=== PATIENT | female | born 1985 | race Caucasian/White ===

== ENCOUNTER → 2018-07-05 | Outpatient (CLI) | payer OTHER | LOC: M RAD 07:14 | DX: M54.42 Lumbago with sciatica, left side (principal); M99.03 Segmental and somatic dysfunction of lumbar region; M54.11 Radiculopathy, occipito-atlanto-axial region; M99.01 Segmental and somatic dysfunction of cervical region | CPT/HCPCS: 72040 ==

== ENCOUNTER 2021-02-16 20:42 | Emergency (ER) | payer MEDICAID, OTHER ==
[~2021-02-16] VITALS: Ht 149.9 cm; Wt 57.8 kg
[2021-02-16 20:43] VITALS: BP 122/78
[2021-02-16] MEDS ORDERED: ALBU83IN INH (21:02)
--- NOTE | 2021-02-16 21:56 | REPVR ---
PROCEDURE INFORMATION: Exam: XR Right Foot Exam date and time: 02/16/2021 9:22 PM Age: 36 years old Clinical indication: Pain; Foot; Right; Additional info: Pain after falling on rocks TECHNIQUE: Imaging protocol: XR Right foot. Views: 3 or more views. COMPARISON: No relevant prior studies available. FINDINGS: Bones/joints: Normal. Soft tissues: Normal. IMPRESSION: No acute findings. Electronically signed by: Darío Bellamy On 02/16/2021 21:55:42 PM
--- NOTE | 2021-02-16 21:57 | REPVR ---
PROCEDURE INFORMATION: Exam: XR Nasal Bones Exam date and time: 02/16/2021 9:22 PM Age: 36 years old Clinical indication: Nose pain; Additional info: Pain after falling on rocks TECHNIQUE: Imaging protocol: XR of the nasal bones. Views: Minimum of 3 views COMPARISON: No relevant prior studies available. FINDINGS: Sinuses: Well aerated. No opacification. Bones/joints: Nondisplaced fracture right nasal bone. Soft tissues: Unremarkable. IMPRESSION: Nondisplaced fracture right nasal bone. Electronically signed by: Darío Bellamy On 02/16/2021 21:57:08 PM
[2021-02-16] MEDS ORDERED: NORCO, ANEXSIA 5/325MG TABLET (HYDROcodone/ACETAMINOPHEN) PO ONE (22:00)
[2021-02-16] MEDS ORDERED: HYDR-3713 PO (22:16)
[2021-02-16] MEDS ORDERED: NORCO 5/325MG TABLET (BULK FOR ED) PO ONE (22:20)
== END 2021-02-16 22:54 | disposition home or self-care (01) ==
LOC: M ED 20:42
DX: S90.31XA Contusion of right foot, initial encounter (principal); S02.2XXA Fracture of nasal bones, initial encounter for closed fracture; W01.0XXA Fall on same level from slipping, tripping and stumbling without subsequent striking against object, initial encounter; Y92.832 Beach as the place of occurrence of the external cause; Y93.89 Activity, other specified; Y99.8 Other external cause status; J45.909 Unspecified asthma, uncomplicated; F17.200 Nicotine dependence, unspecified, uncomplicated

== ENCOUNTER 2021-04-27 13:55 | Emergency (ER) | payer OTHER ==
[~2021-04-27] VITALS: Ht 149.9 cm; Wt 130.0 kg
[~2021-04-27 13:55] MED LIST: ALBU83IN INH; HYDR-3713 PO
[2021-04-27 14:01] VITALS: BP 120/75
== END 2021-04-27 17:28 | disposition left against medical advice (07) ==
LOC: M ED 13:55
DX: Z53.21 Procedure and treatment not carried out due to patient leaving prior to being seen by health care provider (principal)

== ENCOUNTER 2021-05-30 00:55 | Emergency (ER) | payer OTHER ==
[~2021-05-30] VITALS: Ht 149.9 cm; Wt 59.1 kg
[2021-05-30 00:56] VITALS: BP 123/73
== END 2021-05-30 02:19 | disposition left against medical advice (07) ==
LOC: M ED 00:55
DX: Z53.21 Procedure and treatment not carried out due to patient leaving prior to being seen by health care provider (principal)

== ENCOUNTER 2021-06-04 12:12 | Emergency (ER) | payer OTHER ==
[~2021-06-04] VITALS: Ht 154.9 cm; Wt 59.6 kg
[2021-06-04] MEDS ORDERED: PROAAER10 INH (12:25)
[2021-06-04 13:51] LABS: BASO # 0.1 10^3/uL (0.0-0.2); BASO % 0.6 % (0.0-1.0); EOS # 0.3 10^3/uL (0.0-0.5); EOS % 3.3 % (0.0-3.0); HEMOGLOBIN 14.1 g/dl (12.0-15.5); LYMPH # 2.2 10^3/uL (1.5-5.0); LYMPH % 21.2 % (24.0-44.0); MEAN CORPUSCULAR HEMOGLOBIN 32.8 pg (27.0-33.0); MEAN CORPUSCULAR HGB CONC 33.6 g/dl (32.0-36.5); MEAN CORPUSCULAR VOLUME 97.7 fl (80.0-96.0); MONO # 0.7 10^3/uL (0.0-0.8); MONO % 6.5 % (2.0-8.0); NEUTROPHILS % 68.1 % (36.0-66.0); PLATELET COUNT, AUTOMATED 368 10^3/uL (150-450); WHITE BLOOD COUNT 10.3 10^3/uL (4.0-10.0)
[2021-06-04 14:10] LABS: HCG, SERUM QUALITATIVE NEGATIVE (NEGATIVE)
[2021-06-04] MEDS ORDERED: ACETAMINOPHEN 500 MG TAB PO ONE (14:15)
--- NOTE | 2021-06-04 16:45 | REP ---
INDICATION: +LOC, hit with football R orbit eye, nose monday. COMPARISON: September 24, 2011. TECHNIQUE: Helical scanning is acquired. 5 mm axial images were reformatted. Coronal MPR images were generated. FINDINGS: Bone window settings demonstrate an intact bony calvarium. There is no evidence of skull fracture or incidental bony calvarial lesion. The visualized paranasal sinuses appear clear. No intraorbital abnormality is seen. On soft tissue window setting images; the lateral, third, and fourth ventricles are normal in size and position. Andrea-white differentiation pattern is normal above and below the tentorium. There are is no evidence of intracranial hemorrhage. No mass, edema, infarction, or midline shift is seen. No extra-axial fluid collection is appreciated. IMPRESSION: Negative noncontrast head CT. <Electronically signed by Blaise Mahmood > 06/04/21 [id number]
[2021-06-04] MEDS ORDERED: KETOROLAC 60MG 2ML VIAL IM ONE (17:00)
--- NOTE | 2021-06-04 17:03 | REPVR ---
PROCEDURE INFORMATION: Exam: CT Maxillofacial Without Contrast, Sinus Exam date and time: 06/04/2021 4:32 PM Age: 36 years old Clinical indication: Injury or trauma; Other: +loc, hit with football R orbit eye, nose Monday; Blunt trauma (contusions or hematomas); Additional info: +loc, hit with football R orbit eye, nose Monday TECHNIQUE: Imaging protocol: CT Maxillofacial without contrast. Focus on the sinuses. Radiation optimization: All CT scans at this facility use at least one of these dose optimization techniques: automated exposure control; mA and/or kV adjustment per patient size (includes targeted exams where dose is matched to clinical indication); or iterative reconstruction. COMPARISON: CR Nasal Bones 02/16/2021 9:08 PM FINDINGS: Frontal sinuses: Normal. No air-fluid levels. Ethmoid air cells: Normal. No air-fluid levels. Sphenoid sinuses: Normal. No air-fluid levels. Maxillary sinuses: There is a minimal amount of mucoperiosteal thickening in the floors of the maxillary antra. No air-fluid levels in the paranasal sinuses. Nasal cavity/Septum: There is rightward deviation of the nasal septum which appears congenital. No fracture is identified. Orbital cavity: Globes appear intact. There is no intra or extraconal abnormality. The orbital rims appear intact. Bones/joints: There are comminuted fractures of the left nasal bones with slight lateral displacement of the anterior segments. Series 301, images 29 -34. There may be a nondisplaced fracture of the right nasal bones since there appears to be slight leftward deviation. Series 301, image 29. Soft tissues: Facial soft tissue swelling. Auditory system: The middle ear cavities and mastoid air cells are clear. IMPRESSION: There are fractures of the nasal bones on the left and possibly nondisplaced fracture on the right. Electronically signed by: Socorro Cabral On 06/04/2021 17:02:18 PM
[2021-06-04 17:34] VITALS: BP 128/75
== END 2021-06-04 17:42 | disposition home or self-care (01) ==
LOC: M ED 12:12
DX: S02.2XXB Fracture of nasal bones, initial encounter for open fracture (principal); W21.01XA Struck by football, initial encounter; Y92.9 Unspecified place or not applicable; Y93.9 Activity, unspecified; Y99.9 Unspecified external cause status
CPT/HCPCS: 70450; 70486; 84703; 85025; 96372; 99283; J1885

== ENCOUNTER 2021-07-03 14:58 | Emergency (ER) | payer OTHER ==
[~2021-07-03] VITALS: Ht 149.9 cm; Wt 62.6 kg
[~2021-07-03 14:58] MED LIST changes: +PROAAER10 INH
[2021-07-03 14:59] VITALS: BP 118/63
== END 2021-07-03 16:55 | disposition left against medical advice (07) ==
LOC: M ED 14:58
DX: Z53.21 Procedure and treatment not carried out due to patient leaving prior to being seen by health care provider (principal)

== ENCOUNTER 2021-08-11 14:14 | Emergency (ER) | payer OTHER ==
[~2021-08-11] VITALS: Ht 167.6 cm; Wt 62.6 kg
--- OUTSIDE RECORDS SUMMARY | 2021-08-11 14:21 | CCD | Continuity of Care Document ---
Author Author JOAN GUTIERRES, Jessica [facility]AN [facility] Organization Unknown Address [address] [address] Phone [phone] Care Team Providers Care Senior Planner Name Role Phone Wilfrido Hercules M.D. AUTM [phone] Problems Active Problems Provider Date Allergic asthma without status asthmaticus Thomas Jones MD Onset: 06/09/2021 Social History Type Date Description Comments Sex Unknown ETOH Use Denies alcohol use Tobacco Use Start: Unknown Heavy tobacco smoker (more than 10 cigarettes/day) Recreational Drug Use Denies Drug Use Allergies, Adverse Reactions, Alerts Active Allergies Criticality Reaction | Severity Comments Date Honey Bee Venom Unable to assess criticality anaphylax sis 06/09/2021 Shellfish-Derived Products Unable to assess criticality anaphylaxsis 06/09/2021 Medications Active Medications SIG Qnty Indications Ordering Provide r Date Fluticasone Propionate 50mcg/Act Suspension 2 sprays to each nostril twice daily x 1wk and then once daily 3 2gm S02.2xxA Thomas Jones MD 06/09/2021 Ibuprofen 400mg Tablets 400 mg po q6h prn for pain 30tabs S02.2xxA Thomas Jones MD 06/09/2021 Saline Nasal [place] 0.65% Solution 2 sprays to each nostril 2-3 times a day and as needed 264ml S02.2xxA To raffy Jones MD 06/09/2021 Albuterol Sulfate (2 .5mg/3ML) 0.083% Nebulizer 1 vial four times a day as needed Unknown Immunizations Description No Information Available Vital Signs Date Vital Result Comment 06/09/2021 10:32am Height 61 inches 5'1" Weight 132.00 lb BMI (Body Mass Index) 24.9 kg/m2 [place] Body Weight 105 lb Weight 59.875 kg BSA (Body Surface Area) 1.58 m2 Results Description No Information Available Procedures Description No Information Available Medical Devices Description No Information Available Encounters Description No Information Available Assessments Date Code Description Provider 06/09/2021 S02.2xxA Fracture of nasal beth[place] cristofer, initial encounter for closed fracture Thomas Jones MD 06/09/2021 J34.2 Deviated nasal septum Thomas acuna MD Plan of Treatment Future Appointment(s):* 07/28/2021 11:00 am - Thomas Jones MD at [facility] 06/09/2021 - Thomas Jones MD* S02.2xxA Fracture of nasal bones, initial encounter for closed fracture* New Medication:* Fluticasone Propionate 50 mcg/Act - 2 sprays to each nostril twice daily x 1wk and then once daily * Ibuprofen 400 mg - 400 mg po q6h prn for pain * Saline Nasal [place] 0.65 % - 2 sprays to each nostril 2-3 times a day and as needed * J34.2 Deviated nasal septum Functional Status Description No Information Available Mental Status Description No Information Available Referrals Refer to Dr Reason for Referral Status Appt Date Thomas Jones MD ED REFERRAL- [facility] Scheduled 06/09/[address] [address] [phone]
--- OUTSIDE RECORDS SUMMARY | 2021-08-11 14:21 | CCD | Continuity of Care Document ---
Author Author JOAN GUTIERRES, Jessica [facility] Organization Unknown Address [address] [address] Phone [phone] Care Team Providers Care Offline Cutter Name Role Phone Wilfrido Hercules M.D. AUTM [phone] Problems Active Problems Provider Date Allergic asthma without status asthmaticus Thomas Jones MD Onset: 06/09/2021 Social History Type Date Description Comments Sex Unknown ETOH Use Denies alcohol use Tobacco Use Start: Unknown Heavy tobacco smoker (more than 10 cigarettes/day) Recreational Drug Use Denies Drug Use Allergies and adverse reactions Active Allergies Criticality Reaction | Severity Comments [...] S02.2xxA Thomas Jones MD 06/09/2021 Saline Nasal [place] 0.65% Solution 2 sprays to each nostril 2-3 times a day and as needed 264ml S02.2xxA To raffy Jones MD 06/09/2021 Albuterol Sulfate (2 .5mg/3ML) 0.083% Nebulizer 1 vial four times a day as needed Unknown Immunizations Description No Information Available Vital Signs Date Vital Result Comment 06/09/2021 10:32am Height 61 inches 5'1" Weight 132.00 lb BMI (Body Mass Index) 24.9 kg/m2 [place] Body Weight 105 lb Weight 59.875 kg BSA (Body Surface Area) 1.58 m2 Results Description No Information Available Procedures Date Code Description Status 06/09/2021 42257 Office/Outpatient New Moderate M DM 45-59 Minutes Completed Medical Devices Description No Information Available Encounters Type Date Location Provider Dx Diagnosis Office Visit 06/09/2021 10:30a [facility] Thomas Jones MD S02.2xxA Fracture of nasal bones, init encntr for closed fracture J34.2 Deviated nasal septum Assessments Date Code Description Provider 06/09/2021 S02.2xxA Fracture of nasal bethany cristofer, initial encounter for closed fracture Thomas Jones MD 06/09/2021 J34.2 Deviated nasal septum Thomas acuna MD Plan of Treatment 06/09/2021 - Thomas Jones MD* S02.2xxA Fracture of nasal bones, initial encounter for closed fracture* New Medication:* Fluticasone Propionate 50 mcg/Act - 2 sprays to each nostril twice daily x 1wk and then once daily * Ibuprofen 400 mg - 400 mg po q6h prn for pain * Saline Nasal [place] 0.65 % - 2 sprays to each nostril 2-3 times a day and as needed * J34.2 Deviated nasal septum* Follow up:* 6 to 8 weeks Functional Status Description No Information Available Mental Status Description No Information Available Referrals Refer to Reason for Referral Status Appt Thomas Smiley MD ED REFERRAL- [facility] Closed 06/09/[address] [address] [phone]
--- OUTSIDE RECORDS SUMMARY | 2021-08-11 14:21 | CCD ---
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 VITAL SIGNS: On 09/17/20 at 0800, temperature is 97.9, pulse 74, respirations 18, O2 sat on room air 98%, blood pressure is 88/55. This does not reflect her prior blood pressures from the day before; those are 101/59. HEAD AND FACE: No signs of trauma. No ecchymosis, hematomas, or skull depressions. No sinus tenderness. Eyes: PERRLA. EOMI x2. No injected conjunctivae. No nystagmus. Ears: Hearing grossly intact. Ear canals and tympanic membranes are within normal limits. Mouth: Oropharynx within normal limits. NECK: Supple. Trachea is midline. No adenopathy. No JVD. No carotid bruits. No C-spine tenderness. Neck with full range of motion. CHEST: Symmetric. No tenderness on palpation. LUNGS: Clear to auscultation bilaterally. No wheezing or crackles. CVS: Regular rate and rhythm. S1 and S2 present. No murmurs or gallops appreciated. ABDOMEN: Soft, nontender. No signs of distention. No rebound, no guarding, and no masses palpated. Bowel sounds are normal. EXTREMITIES: Full range of motion in all major joints. No edema. No cyanosis or clubbing. NEURO: Alert and oriented x4. No acute neurological deficits. Speech is normal and follows commands. SKIN: Dry and warm. MENTAL STATUS EXAMINATION: Jessica is a 4-foot 11-inch, 113-pound white woman who was found lying in bed, curled up in a blanket. She is quiet and she sits comfortably and calm, although she is eager to leave. Her speech is of normal rate, tone, and volume. She is dysthymic. She has an expansive range of affect that is slig htly labile. Her thought processes are normal. Her thought content is free of delusions. It is significant for leaving the hospital as she feels like her attempt to jumpoff the bridge was misinterpreted. She is not currently homicidal or suicidal. She is not having hallucinations. Her insight and judgment are fair to good. She is alert and oriented x4. LABORATORY DATA: Most data are within normal limits, exceptions include white blood cells high 10.9, MCH high 33, absolute neutrophils high 8.7, glucose high 107. Urine screen contains 2+ protein, trace ketones, positive for urobilinogen, trace leukocyte esterase, 2+ urine white blood cells, 3+ urine red blood cells, present urine squamous epithelial cells, present calcium oxalate crystals, present urine ascorbic acid. Toxicology is positive for cannabinoids. Her COVID-19 PCR screen shows that COVID is detected. DIAGNOSIS: Posttraumatic stress disorder. IMPRESSION: Jessica is a 35-year-old white woman who comes to the hospital after being found on a bridge getting ready to jump off. She is diagnosed with posttraumatic stress disorder and found to be a reasonable person who was under significant stress. PLAN: The patient is admitted to the adult behavioral health unit and placed on q.15-minute checks for her own safety. The patient is encouraged to participate in activities that are brought to her. Estimated length of stay is 1 to 3 days. We will titrate medications to efficacy and monitor for mood and thought content. Discharge planning will include family involvement and outpatient providers. CONDITION AT THE TIME OF DISCHARGE: Improved, psychiatrically cleared, stable. Her partner is agreeable to discharge. She has done well here psychiatrically. She tolerated Abilify and hydroxyzine well. She will be referred to [facility]. MENTAL STATUS EXAM AT THE TIME OF DISCHARGE: Jessica is calm and cooperative and makes good eye contact. She is alert and oriented x4. Her grooming is good. Her speech pace is normal. Her thought processes are logical. She is not psychotic or delusional. She denies AH, VH, SI, or HI. Insight and judgment are fair to good. Willing to follow up. Urged to see a therapist. DISCHARGE INSTRUCTIONS TO THE PATIENT: A. Medications: 1. Aripiprazole 5 mg. 2. Hydroxyzine 50 mg p.o. q.6 hours p.r.n. anxiety or insomnia, dispensed 60. 3. Nicotine gum q.2 hours p.r.n. craving, quantity 50. B. Diet is regular. C. Activities as tolerated. She is a smoker and has agreed to use nicotine gum. There are no studies pending at the time of discharge. D. Followup care: She has an appointment at [facility] on 09/22/20 at 1 p.m. with Sarah. Shore. Disposition: She is returning to the location she is sharing with her partner. F. Substance abuse followup is not currently indicated. HOSPITAL COURSE: Psychiatric treatment was rendered. Jessica was admitted to the adult behavioral unit and placed on 15-minute checks for safety. She did well on the unit and was unfortunately quarantined to one room while she was here. She interacted with staff appropriately. Abilify was started as was hydroxyzine. That was one of the reasons she stated she wanted to come into the hospital was to get her medication sorted out. There was no available time to get her hemoglobin A1c or lipid panel as she left within 1 day. We did not meet with her family due to COVID restrictions. Her partner was contacted. There were no consults entered. She is future oriented and significantly improved with some sleep and support. We wish her well. JOSEPH MCCLOUD, ZANDER [id number]/CPS #: [id number] <Electronically signed by Joseph Mccloud [employer]KER> 09/30/20 1207 * <Electronically signed by Armin Ku MD> 10/01/20 1137 Joseph Mccloud [employer] Dictated Date/Time: 09/29/20 0816 Transcribed Date/Time 09/29/20 0920 Copy to: CC: No Primary Care Phys,NOPCP ; Joseph Mccloud [employer] Name Value Range Interpretation Code Description Data Margarette rce(s) Supporting Document(s) ID Date Data Source [id number] 09/16/2020 06:30:00 PM EST [facility] Name Value Range Interpretation Code Description Data Margarette rce(s) Supporting Document(s) SARS-CoV-2 (COVID-19) RNA [Presence] in Respiratory specimen by KERRI with probe detection [facility] This lab was ordered by Main Lab and rep orted by [facility]. ID Date Data Source [id number] 09/17/2020 08:33:00 AM EST [facility] Nasopharyngeal Name Value Range Interpretation Code Description Data Margarette rce(s) Supporting Document(s) SARS Coronavirus-2, PCR Detected Undetected A [facility] Positive results are indicative of the p resence isXRCW-HsE-0 RNA; clinical correlation with patient historyand other diagnostic information is necessary to determinepatient infection status.Per FDA guidelines, this test has been internally validatedat [facility] utilizing known standards and patientsamples. Validation review by the FDA is pending.Source: Nasopharyngeal ID Date Data Source [id number] 09/16/2020 07:31:00 PM EST [facility] Name: JESSICA CARMEN : [address]: Melvin Chris MD Acct: [id number] Unit: [id number] AGE: 35 Location: [facility] Re09/16/20 Dis: 09/17/20 SEX: F Status: DIS IN SPEC: [id number] LAMAR: 09/16/20-[address] [facility] [address]: Gerson Hogan MD REQ: [id number] RECD: 09/16/20 STATUS: LARA RUBIO DR: Mami Primary Care Phys,[facility] _ SOURCE: URINE SPDESC: ORDERED: Urine Culture Procedure Result Reported Site Urine Culture Final 09/19/20-08 ML Organism 1 ESCHERICHIA COLI [place] Count 75-100,000 (Many) CFU/ML 1. ESCHERICHIA COLI M.I.C. RX --------- ------ Ampicillin >=32 R Cefazolin <=4 S Cefepime <=1 S Ceftriaxone <=1 S Ciprofloxacin >=4 R Gentamicin <=1 S Levofloxacin >=8 R Meropenem <=0.25 S Nitrofurantoin <=16 S Tetracycline <=1 S Piperacillin/Tazobactam <=4 S Trimethoprim/Sulfamethoxazole <=20 S Amoxicillin/Clavulanic Acid 16 I Aztreonam <=1 S Contact the Microbiology Department for any additional antibiotic reporting. * ML - Main Lab . END OF REPORT DEPARTMENT OF PATHOLOGY, [address] [place] [address] Syl Ash M.D. Director [facility] # [id number] Name Value Range Interpretation Code Description Data Margarette rce(s) Supporting Document(s) White Blood Count 10.9 10 3/uL 3.5-10.8 [facility] Red Blood Count 4.13 10 6 /uL 3.70-4.87 [facility] Hemoglobin 13.8 g/dL 12.0-16.0 N [facility] er Hematocrit 40 % 35-47 N [facility] Mean Corpuscular Volume 96 fL 80-97 N [facility] Mean Corpuscular Hemoglobin 33 pg 27-31 H [facility] Mean Corpuscular HGB Conc 35 g/dL 31-[address] [facility] Red Cell Distribution Width 13 % 10-15 [facility] Platelet Count 301 10 3/uL 150-450 N [facility] Mean Platelet Volume 8.5 fL 7.4-10.4 N [facility] ABS Neutrophils 8.7 10 3/ul 1.5-7.7 H [facility] ABS Lymphocytes 1.5 10 3/ul 1.0-4.8 N [facility] ABS Monocytes 0.6 10 3/ul 0-0.8 [facility] ABS Eosinophils 0.1 10 3/ul 0-0.6 [facility] ABS Basophils 0.1 10 3/ul 0-0.2 [facility] ABS Nucleated RBC 0.0 10 3/ul [facility] Granulocyte % 79.7 % [facility] enter Lymphocyte % 13.4 % [facility] nter Monocyte % 5.4 % [facility] er Eosinophil % 0.9 % [facility] nter Basophil % 0.6 % [facility] Nucleated Red Blood Cells % 0.0 [facility] ID Date Data Source [id number] 09/16/2020 07:56:00 PM [facility] Name: JESSICA CARMEN : [address]: Melvin Chris MD Acct: [id number] Unit: [id number] AGE: 35 Location: [address] Re09/16/20 Dis: 09/17/20 SEX: F Status: DIS IN SPEC: [id number] LAMAR: 09/16/[address] [facility] [address]: Gerson Hogan MD REQ: [id number] RECD: 09/16/20 STATUS: LARA RUBIO DR: Mami Primary Care Phys,NOP _ SOURCE: URINE SPDESC: ORDERED: Urine Culture Procedure Result Reported Site Urine Culture Final 09/19/20-08 ML Organism 1 ESCHERICHIA COLI [place] Count 75-100,000 (Many) CFU/ML 1. ESCHERICHIA COLI M.I.C. RX --------- ------ Ampicillin >=32 R Cefazolin <=4 S Cefepime <=1 S Ceftriaxone <=1 S Ciprofloxacin >=4 R Gentamicin <=1 S Levofloxacin >=8 R Meropenem <=0.25 S Nitrofurantoin <=16 S Tetracycline <=1 S Piperacillin/Tazobactam <=4 S Trimethoprim/Sulfamethoxazole <=20 S Amoxicillin/Clavulanic Acid 16 I Aztreonam <=1 S Contact the Microbiology Department for any additional antibiotic reporting. * ML - Main Lab . END OF REPORT DEPARTMENT OF PATHOLOGY, [address] [place] [address] Syl Ash M.D. Director [facility] # [id number] Name Value Range Interpretation Code Description Data Margarette rce(s) Supporting Document(s) Sodium 138 mmol/L 135-145 N [facility] Potassium 3.8 mmol/L 3.5-5.0 [facility] Chloride 106 mmol/L 101-111 [facility] CO2 Carbon Dioxide 24 mmol/L 22-32 [facility] Anion Gap 8 mmol/L 2-11 N [facility] Glucose 107 mg/dL 70-100 [facility] Blood Urea Nitrogen 16 mg/dL 6-24 [facility] Creatinine 0.85 mg/dL 0.51-0.95 [facility] BUN/Creatinine Ratio 18.8 8-20 [facility] Calcium 10.2 mg/dL 8.6-10.3 [facility] Total Protein 6.8 g/dL 6.4-8.9 [facility] enter Albumin 4.4 g/dL 3.2-5.2 N [facility] Globulin 2.4 g/dL 2-4 N [facility] Albumin/Globulin Ratio 1.8 1-3 [facility] Total Bilirubin 0.30 mg/dL 0.2-1.0 [facility] Alkaline Phosphatase 62 U/L 34-104 [facility] ALT 8 U/L 7-52 N [facility] AST 14 U/L 13-39 N [facility] EGFR Non- 77.[address]60 [facility] EGFR 93.[address] >60 [facility] Because ethnic data is not always readily available,this report includes an eGFR for both -Americans andnon- Americans.The National Kidney Disease Education Program (NKDEP) doesnot endorse the use of the MDRD equation for patients thatare not between the ages of 18 and 70, are , haveextremes of body size, muscle mass, or nutritional status,or are non- or non-.According to the National Kidney Foundation, irrespective ofdiagnosis, the stage of the disease is based on the level ofkidney function:Stage Description GFR(mL/min/1.73 m(2))1 Kidney damage with normal or decreased GFR 902 Kidney damage with mild decrease in GFR 60-893 Moderate decrease in GFR 30-594 Severe decrease in GFR 15-295 Kidney failure <15 (or dialysis) ID Date Data Source [id number] 09/16/2020 07:56:00 PM [facility] Name: JESSICA CARMEN : [address]: Melvin Chris MD Acct: [id number] Unit: [id number] AGE: 35 Location: [facility] 207- Re09/16/20 Dis: 09/17/20 SEX: F Status: DIS IN SPEC: [id number] LAMAR: 09/16/[address]: Gerson Hogan MD REQ: [id number] RECD: 09/16/20 STATUS: LARA RUBIO DR: Mami [facility] Phys,[facility] _ SOURCE: URINE SPDESC: ORDERED: Urine Culture Procedure Result Reported Site Urine Culture Final 09/19/20-825 ML Organism 1 ESCHERICHIA COLI [place] Count 75-100,000 (Many) CFU/ML 1. ESCHERICHIA COLI M.I.C. RX --------- ------ Ampicillin >=32 R Cefazolin <=4 S Cefepime <=1 S Ceftriaxone <=1 S Ciprofloxacin >=4 R Gentamicin <=1 S Levofloxacin >=8 R Meropenem <=0.25 S Nitrofurantoin <=16 S Tetracycline <=1 S Piperacillin/Tazobactam <=4 S Trimethoprim/Sulfamethoxazole <=20 S Amoxicillin/Clavulanic Acid 16 I Aztreonam <=1 S Contact the Microbiology Department for any additional antibiotic reporting. * ML - Main Lab . END OF REPORT DEPARTMENT OF PATHOLOGY, [address] [place] [address] Syl Ash M.D. Director [facility] # [id number] Name Value Range Interpretation Code Description Data Margarette rce(s) Supporting Document(s) Acetaminophen < 15 mcg/mL [facility] Therapeutic concentration: <50 ug/mLToxi c concentration: >120 ug/mL ID Date Data Source [id number] 09/16/2020 07:56:00 PM [facility] Name: JESSICA CARMEN : [address]: Melvin Chris MD Acct: [id number] Unit: [id number] AGE: 35 Location: [address] Re09/16/20 Dis: 09/17/20 SEX: F Status: DIS IN SPEC: [id number] LAMAR: 09/16/20-[address] [facility] [address]: Gerson Hogan MD REQ: [id number] RECD: 09/16/20-1920 STATUS: LARA RUBIO DR: Mami Primary Care Phys,NOPCP _ SOURCE: URINE SPDESC: ORDERED: Urine Culture Procedure Result Reported Site Urine Culture Final 09/19/20-825 ML Organism 1 ESCHERICHIA COLI [place] Count 75-100,000 (Many) CFU/ML 1. ESCHERICHIA COLI M.I.C. RX --------- ------ Ampicillin >=32 R Cefazolin <=4 S Cefepime <=1 S Ceftriaxone <=1 S Ciprofloxacin >=4 R Gentamicin <=1 S Levofloxacin >=8 R Meropenem <=0.25 S Nitrofurantoin <=16 S Tetracycline <=1 S Piperacillin/Tazobactam <=4 S Trimethoprim/Sulfamethoxazole <=20 S Amoxicillin/Clavulanic Acid 16 I Aztreonam <=1 S Contact the Microbiology Department for any additional antibiotic reporting. * ML - Main Lab . END OF REPORT DEPARTMENT OF PATHOLOGY, [address] [place] [address] Syl Ash M.D. Director [facility] # [id number] Name Value Range Interpretation Code Description Data Margarette rce(s) Supporting Document(s) Alcohol, S < 10 mg/dL <[address] [facility] [address] ID Date Data Source [id number] 09/16/2020 07:56:00 PM [facility] Name: JESSICA CARMEN : [address]: Melvin Chris MD Acct: [id number] Unit: [id number] AGE: 35 Location: [facility] Re09/16/20 Dis: 09/17/20 SEX: F Status: DIS IN SPEC: [id number] LAMAR: 09/16/20-[address] [facility] [address]: Gerson Hogan MD REQ: [id number] RECD: 09/16/20 STATUS: LARA RUBIO DR: Mami Primary Care Phys,[facility] _ SOURCE: URINE SPDESC: ORDERED: Urine Culture Procedure Result Reported Site Urine Culture Final 09/19/20-825 ML Organism 1 ESCHERICHIA COLI [place] Count 75-100,000 (Many) CFU/ML 1. ESCHERICHIA COLI M.I.C. RX --------- ------ Ampicillin >=32 R Cefazolin <=4 S Cefepime <=1 S Ceftriaxone <=1 S Ciprofloxacin >=4 R Gentamicin <=1 S Levofloxacin >=8 R Meropenem <=0.25 S Nitrofurantoin <=16 S Tetracycline <=1 S Piperacillin/Tazobactam <=4 S Trimethoprim/Sulfamethoxazole <=20 S Amoxicillin/Clavulanic Acid 16 I Aztreonam <=1 S Contact the Microbiology Department for any additional antibiotic reporting. * ML - Main Lab . END OF REPORT DEPARTMENT OF PATHOLOGY, [address] [place] [address] Syl Ash M.D. Director [facility] # [id number] Name Value Range Interpretation Code Description Data Margarette rce(s) Supporting Document(s) Salicylate < 2.50 mg/dL <30 [facility] ID Date Data Source [id number] 09/16/2020 07:56:00 PM EST [facility] Name: JESSICA CARMEN : [address]: Mevlin Chris MD Acct: [id number] Unit: [id number] AGE: 35 Location: [facility] Re09/16/20 Dis: 09/17/20 SEX: F Status: DIS IN SPEC: [id number] LAMAR: 09/16/20-[address] [facility] [address]: Gerson Hogan MD REQ: [id number] RECD: 09/16/20 STATUS: LARA RUBIO DR: Mami Primary Care Phys,NOP _ SOURCE: URINE SPDESC: ORDERED: Urine Culture Procedure Result Reported Site Urine Culture Final 09/19/20-0826 ML Organism 1 ESCHERICHIA COLI [place] Count 75-100,000 (Many) CFU/ML 1. ESCHERICHIA COLI M.I.C. RX --------- ------ Ampicillin >=32 R Cefazolin <=4 S Cefepime <=1 S Ceftriaxone <=1 S Ciprofloxacin >=4 R Gentamicin <=1 S Levofloxacin >=8 R Meropenem <=0.25 S Nitrofurantoin <=16 S Tetracycline <=1 S Piperacillin/Tazobactam <=4 S Trimethoprim/Sulfamethoxazole <=20 S Amoxicillin/Clavulanic Acid 16 I Aztreonam <=1 S Contact the Microbiology Department for any additional antibiotic reporting. * ML - Main Lab . END OF REPORT DEPARTMENT OF PATHOLOGY, [address] [place] [address] Syl Ash M.D. Director [facility] # [id number] Name Value Range Interpretation Code Description Data Margarette rce(s) Supporting Document(s) TSH Ultra Thyroid Stim Horm 0.41 mcIU/mL 0.34-5.60 [facility] ID Date Data Source [id number] 09/16/2020 07:37:00 PM [facility] Name: NELLAJESSICA Villalba : [address]: Melvin Chris MD Acct: [id number] Unit: [id number] AGE: 35 Location: [place] [address]- Re09/16/20 Dis: 09/17/20 SEX: F Status: DIS IN SPEC: [id number] LAMAR: 09/16/20-[address] [facility] [address]: Gerson Hogan MD REQ: [id number] RECD: 09/16/20 STATUS: LARA RUBIO DR: Mami Primary Care Phys,[facility] _ SOURCE: URINE SPDESC: ORDERED: Urine Culture Procedure Result Reported Site Urine Culture Final 09/19/20-825 ML Organism 1 ESCHERICHIA COLI [place] Count 75-100,000 (Many) CFU/ML 1. ESCHERICHIA COLI M.I.C. RX --------- ------ Ampicillin >=32 R Cefazolin <=4 S Cefepime <=1 S Ceftriaxone <=1 S Ciprofloxacin >=4 R Gentamicin <=1 S Levofloxacin >=8 R Meropenem <=0.25 S Nitrofurantoin <=16 S Tetracycline <=1 S Piperacillin/Tazobactam <=4 S Trimethoprim/Sulfamethoxazole <=20 S Amoxicillin/Clavulanic Acid 16 I Aztreonam <=1 S Contact the Microbiology Department for any additional antibiotic reporting. * ML - Main Lab . END OF REPORT DEPARTMENT OF PATHOLOGY, [address] [place] [address] Syl Ash M.D. Director [facility] # [id number] Name Value Range Interpretation Code Description Data Margarette rce(s) Supporting Document(s) Urine Color [facility] Urine Appearance Cloudy [facility] Urine Specific [place] 1.030 1.010-1.030 N [facility] Urine pH 5.0 5-9 N [facility] Urine Urobilinogen Positive Negative A [facility] Urine Ketones Trace Negative A [facility] enter Urine Protein 2+(100 mg/dL) Negative A [facility] Urine Leukocytes Trace Negative A [facility] Urine Blood Negative Negative [facility] * * Negative A [facility] *Ascorbic acid is present which may inte rfere with detectionof blood. Urine Nitrite Negative Negative [facility] enter Urine Bilirubin Negative Negative [facility] Urine Glucose Negative Negative [facility] enter Urine White Blood Cell 2+(11-20/hpf) Absent A [facility] Urine Red Blood Cell 3+(>10/hpf) Absent A [facility] Urine Bacteria Absent Absent [facility] Urine Squamous Epithelial Cell Present Absent A [facility] Urine Calcium Oxalate Cryst Present Absent A [facility] ID Date Data Source [id number] 09/16/2020 07:43:00 PM EST [facility] Name: JESSICA CARMEN : [address]: Melvin Chris MD Acct: [id number] Unit: [id number] AGE: 35 Location: [facility] Re09/16/20 Dis: 09/17/20 SEX: F Status: DIS IN SPEC: [id number] LAMAR: 09/16/20-[address] [facility] [address]: Gerson Hogan MD REQ: [id number] RECD: 09/16/20 STATUS: LARA RUBIO DR: Mami Primary Care Phys,NOP _ SOURCE: URINE SPDESC: ORDERED: Urine Culture Procedure Result Reported Site Urine Culture Final 09/19/20-08 ML Organism 1 ESCHERICHIA COLI [place] Count 75-100,000 (Many) CFU/ML 1. ESCHERICHIA COLI M.I.C. RX --------- ------ Ampicillin >=32 R Cefazolin <=4 S Cefepime <=1 S Ceftriaxone <=1 S Ciprofloxacin >=4 R Gentamicin <=1 S Levofloxacin >=8 R Meropenem <=0.25 S Nitrofurantoin <=16 S Tetracycline <=1 S Piperacillin/Tazobactam <=4 S Trimethoprim/Sulfamethoxazole <=20 S Amoxicillin/Clavulanic Acid 16 I Aztreonam <=1 S Contact the Microbiology Department for any additional antibiotic reporting. * ML - Main Lab . END OF REPORT DEPARTMENT OF PATHOLOGY, [address] [place] [address] Syl Ash M.D. Director [facility] # [id number] Name Value Range Interpretation Code Description Data Margarette rce(s) Supporting Document(s) Urine Amphetamine Screen None Detected None Detect [facility] Urine Barbiturates Screen None Detected None Detect [facility] Urine Benzodiazepine Screen None Detected None Detect [facility] Urine Cannabinoids Screen Presumptive Positive None Detect A [facility] Presumptive positive results are unconfi rmed. Urine Cocaine Screen None Detected None Detect [facility] Urine Opiates Screen None Detected None Detect [facility] Urine Phencyclidine Screen None Detected None Detect [facility] The urine specimen was tested at the lis katty cutoffs:Drug class test level(ng/mL)Amphetamines 500Barbiturates 200Benzodiazepine metabolites 200Cocaine metabolites 150Cannabinoids 50Opiates 300Pcp 25Specimen was received without chain of custody. Resultsshould be used for medical purposes only. ID Date Data Source [id number] 09/19/2020 08:26:00 AM [facility] Name: JESSICA CARMEN : [address]: Melvin Chris MD Acct: [id number] Unit: [id number] AGE: 35 Location: [facility] Re09/16/20 Dis: 09/17/20 SEX: F Status: DIS IN SPEC: [id number] LAMAR: 09/16/20-[address] [facility] [address]: Gerson Hogan MD REQ: [id number] RECD: 09/16/20 STATUS: LARA RUBIO DR: Mami Primary Care Phys,NOPCP _ SOURCE: URINE SPDESC: ORDERED: Urine Culture Procedure Result Reported Site Urine Culture Final 09/19/20-0826 ML Organism 1 ESCHERICHIA COLI [place] Count 75-100,000 (Many) CFU/ML 1. ESCHERICHIA COLI M.I.C. RX --------- ------ Ampicillin >=32 R Cefazolin <=4 S Cefepime <=1 S Ceftriaxone <=1 S Ciprofloxacin >=4 R Gentamicin <=1 S Levofloxacin >=8 R Meropenem <=0.25 S Nitrofurantoin <=16 S Tetracycline <=1 S Piperacillin/Tazobactam <=4 S Trimethoprim/Sulfamethoxazole <=20 S Amoxicillin/Clavulanic Acid 16 I Aztreonam <=1 S Contact the Microbiology Department for any additional antibiotic reporting. * [facility] - Main Lab . END OF REPORT DEPARTMENT OF PATHOLOGY, [address] [place] [address] Syl Ash M.D. Director [facility] # [id number] Name Value Range Interpretation Code Description Data Margarette rce(s) Supporting Document(s) ID Date Data Source [id number] 09/16/2020 04:40:00 PM [facility] ED Provider Documentation Patient: JESSICA CARMEN [id number] /Age: 04 1985 35 Medical Record #: [id number] Service Date: 09/16/20 Location: EMERGENCY DE PARTMENT Observation Date/Time: Psychiatric Complaint - HPI Summary HPI Summary: This patient is a 35 y/o female presenting to [facility] via police for suicidal ideation. Patient reports she has been feeling depressed and endorses suicidal ideation thoughts x4 days. Patient statesshe tried to jump off a bridge today but was found by the police. Patient notes "everything" triggers her suicidal ideation. Patient reports she is not eating and not sleeping as she should. Patient has hx depression and is supposed to take medications but has not in a while. Denies alcohol and tobacco use, however admits to marijuana use. - History Of Current Complaint Chief Complaint: EDSuicidal Time Seen by Provider: 09/16/20 16:22 Accompanied By: Police Hx Obtained From: Patient Onset/Duration: Lasting Days - 4, Still Present Timing: Days - 4 Severity Currently: Severe Character: Depressed Aggravating Factor(s): Nothing Alleviating Factor(s): Nothing Associated Signs And Symptoms: Positive: Sleep Disturbance, Appetite Change Related History: Positive For: Prior Psychiatric Issues Has Suicidal: Reports: Thoughts, With A Plan Has Homicidal: Denies: Thoughts, With A Plan - Allergies/Home Medications Allergies/Adverse Reactions: Allergies Allergy/AdvReac Type Severity Reaction Status Date / Time bee venom protein (honey bee) Allergy Anaphylatic Verified 09/16/20 16:05 Shock shellfish derived Allergy Anaphylatic Verified 09/16/20 16:05 Shock Home Medications: Home Medications NK [No Home Medications Reported] 09/16/20 [History Confirmed 09/16/20] PMH/Surg Hx/FS Hx/Imm Hx Endocrine/Hematology History: Denies: Hx Diabetes Cardiovascular History: Denies: Hx Hypertension Psyc hiatric History: Reports: Hx Depression Infectious Disease History: No Infectious Disease History: Denies: Traveled Outside the [place] in Last 30 Days - Family History Known Family History: Negative: Cardiac Disease, Hypertension, Renal Disease - Social History Alcohol Use: None Substance Use Type: Reports: Marijuana Smoking Status (MU): Never Smoked Tobacco Review of Systems Constitutional: Other - POSITIVE: appetite change and sleep disturbance Negative: Fever Cardiovascular: Negative Respiratory: Negative Gastrointestinal: Negative Psychological: Other - POSITIVE: SI Positive: Depressed. Negative: Other - NEGATIVE: HI All Other Systems Reviewed And Are Negative: Yes Physical Exam - Summary Physical Exam Summary: VITAL SIGNS: Reviewed. GENERAL: Patient is a well-developed and nourished female who is crying. HEAD AND FACE: No signs of trauma. No ecchymosis, hematomas or skull depressions. No sinus tenderness. EYES: PERRLA, EOMI x 2, No injected conju nctiva, no nystagmus. EARS: Hearing grossly intact. Ear canals and tympanic membranes are within normal limits. MOUTH: Oropharynx within normal limits. NECK: Supple, trachea is midline, no adenopathy, no JVD, no carotid bruit, no c- spine tenderness, neck with full ROM. CHEST: Symmetric, no tenderness at palpation LUNGS: Clear to auscultation bilaterally. No wheezing or crackles. CVS: Regular rate and rhythm, S1 and S2 present, no murmurs or gallops appreciated. ABDOMEN: Soft, non-tender. No signs of distention. No rebound no guarding, and no masses palpated. Bowel sounds are normal. EXTREMITIES: FROM in all major joints, no edema, no cyanosis or clubbing. NEURO: Alert and oriented x 3. No acute neurological deficits. Speech is normal and follows commands. SKIN: Dry and warm PSYCH: crying at bedside. Positive SI with plan to jump off bridge. Triage Information Reviewed: Yes Vital Signs On Initial Exam: Initial Vitals Temp Pulse Resp BP Pulse Ox 98.8 F 89 18 122/84 98 09/16/20 16:02 09/16/20 16:02 09/16/20 16:02 09/16/20 16:02 09/16/20 16:02 Vital Signs Reviewed: Yes Procedures - Sedation Patient Received Moderate/Deep Sedation with Procedure: No Diagnostics - Vital Signs Vital Signs Temp Pulse Resp BP Pulse Ox 09/16/20 16:02 98.8 F 89 18 122/84 98 - Laboratory Result Diagrams: 09/16/20 17:01 09/16/20 17:01 Lab Statement: Any lab studies that have been ordered have been reviewed, and results considered in the medical decision making process. Re-Evaluation - Re-Evaluation First Eval Re-Evaluation Time: 16:38 Comment: Patient is medically cleared. Course/Dx - Course Assessment/Plan: This patient is a 35 y/o female presenting to [facility] via police for suicidal ideation. Patient reports she has been feeling depressed and endorses suicidal ideation thoughts x4 days. Patient states she tried to jump off a bridge today but was found by the police. Patient notes"everything" triggers her suicidal ideation. Patient reports she is not eating and not sleeping as she should. Patient has hx depression and is supposed to take medications but has not in a while. Denies alcohol and tobacco use, however admits to marijuana use. Patient was medically cleared. She had a mental health evaluation and her case was reviewed by Dr. Chris, psychiatrist. Dr. Chris will admit the patient to [facility] on a voluntary status with dx mood disorder NOS. - Differential Dx/Clinical Impression Provider Diagnosis: Mood disorder - Critical Care Time Critical Care Statement: Critical care time is provided exclusive of any time spent performing procedures. Discharge ED - Sign-Out/Discharge Documenting (check all that apply): Patient Departure - Admit to [facility] - Discharge Plan Condition: Stable Disposition: PSYCHIATRIC FACILITY[place] Referrals: [facility] PHYSICIAN REFERRAL [Outside] No Primary Care Phys,NOPCP [Primary Care Provider] - - Billing Disposition and Condition Condition: STABLE Disposition: Psychiatric Facility [facility] - Attestation Statements Document Initiated by Scribe: Yes Documenting Scribe: Massiel Chong Provider For Whom Scribe is Documenting (Include Credential): Gerson Hogan MD Scribe Attestation: Massiel Almendarez scribed for Gerson Hogan MD on 09/16/20 at 1951. Scribe Documentation Reviewed: Yes Provider Attestation: The documentation as recorded by the scribe, Massiel Chong accurately reflects the service I personally performed and the decisions made by me, Gerson Hogan MD Status of Scribe Document: Viewed <Electronically signed by Gerson Hogan MD> 09/16/201951 Entered by: Massiel DUNNE Entered Date/Time: 09/16/20 1640 Copy to: No Primary Care Phys,NOPCP Name Value Range Interpretation Code Description Data Margarette rce(s) Supporting Document(s) Procedure Social History No Information Vital Signs ID Date Data Source UNK Name Value Range Interpretation Code Description Data Source(s) [place]in body weight 105 [lb_av] 105 [lb_av] [facility] ([facility], ) Body height 61 [in_i] 61 [in_i] [facility] ([facility]) 5'1" Body weight 132.00 [lb_av] 132.00 [lb_av] [facility] ([facility]) Body mass index (BMI) [Ratio] 24.9 kg/m2 24.9 k g/m2 [facility] ([facility]) Body weight 59.875 kg 59.875 kg [facility] ([facility], ) Body surface area Derived from formula 1.58 m2 1.58 m2 [facility] ([facility], ) ID Date Data Source [id number] 02/19/2021 03:55:00 PM EDT [facility] Name Value Range Interpretation Code Description Data Source(s) HEIGHT 149.86 cm 149.86 cm [facility] WEIGHT RECORDED 51.214657 kg 51.883413 kg [facility]
[2021-08-11 14:38] VITALS: BP 103/59
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
[2021-08-11 15:49] LABS: HEMATOCRIT 43.1 % (36.0-47.0); HEMOGLOBIN 14.5 g/dl (12.0-15.5); MEAN CORPUSCULAR HEMOGLOBIN 32.3 pg (27.0-33.0); MEAN CORPUSCULAR HGB CONC 33.6 g/dl (32.0-36.5); PLATELET COUNT, AUTOMATED 339 10^3/uL (150-450); RED BLOOD COUNT 4.49 10^6/uL (4.00-5.40); WHITE BLOOD COUNT 12.9 10^3/uL (4.0-10.0)
[2021-08-11 16:14] LABS: AMPHETAMINES LEVEL URINE NEGATIVE (NEGATIVE); BARBITURATES URINE POSITIVE (NEGATIVE); BENZODIAZEPINES URINE NEGATIVE (NEGATIVE); CANNABINOIDS URINE POSITIVE (NEGATIVE); COCAINE METABOLITE URINE NEGATIVE (NEGATIVE); METHADONE URINE NEGATIVE (NEGATIVE); OPIATES URINE NEGATIVE (NEGATIVE); PHENCYCLIDINE URINE NEGATIVE (NEGATIVE)
[2021-08-11 16:14] LABS: ACETAMINOPHEN LEVEL < 2.0 UG/ML (10.0-30.0); ALBUMIN 3.6 GM/DL (3.2-5.2); ALT/SGPT 64 U/L (12-78); BILIRUBIN,DIRECT < 0.1 MG/DL (0.0-0.2); BILIRUBIN,TOTAL 0.2 MG/DL (0.2-1.0); BLOOD UREA NITROGEN 11 MG/DL (7-18); CALCIUM LEVEL 9.8 MG/DL (8.5-10.1); CARBON DIOXIDE LEVEL 26 MEQ/L (21-32); CHLORIDE LEVEL 109 MEQ/L (98-107); CREATININE FOR GFR 0.76 MG/DL (0.55-1.30); ETHYL ALCOHOL (ETHANOL) < 0.003 % (0.000-0.010); GLOMERULAR FILTRATION RATE > 60.0 (>60); GLUCOSE, FASTING 72 MG/DL (70-100); POTASSIUM SERUM 4.2 MEQ/L (3.5-5.1); SALICYLATE LEVEL 3.1 MG/DL (5.0-30.0); SODIUM LEVEL 139 MEQ/L (136-145)
== END 2021-08-11 17:16 | disposition home or self-care (01) ==
LOC: M ED 14:14
DX: F32.A Depression, unspecified (principal); F44.81 Dissociative identity disorder; F17.200 Nicotine dependence, unspecified, uncomplicated; Z91.013 Allergy to seafood; Z91.030 Bee allergy status

== ENCOUNTER 2021-08-13 23:05 | Inpatient (IN) | payer OTHER, MEDICAID ==
[~2021-08-13] VITALS: Ht 149.9 cm; Wt 63.6 kg
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
[2021-08-13] MEDS ORDERED: KLON0.5T PO (23:17)
[2021-08-14] MEDS ORDERED: ALPRAZolam 0.5 MG TAB PO ONE (04:15)
[2021-08-14 04:21] LABS: HEMATOCRIT 39.9 % (36.0-47.0); HEMOGLOBIN 13.7 g/dl (12.0-15.5); MEAN CORPUSCULAR HEMOGLOBIN 32.4 pg (27.0-33.0); MEAN CORPUSCULAR HGB CONC 34.3 g/dl (32.0-36.5); MEAN CORPUSCULAR VOLUME 94.3 fl (80.0-96.0); PLATELET COUNT, AUTOMATED 335 10^3/uL (150-450); RED BLOOD COUNT 4.23 10^6/uL (4.00-5.40); WHITE BLOOD COUNT 9.7 10^3/uL (4.0-10.0)
[2021-08-14 04:49] LABS: CK-MB VALUE MASS < 1.0 NG/ML (<3.6); CPK CREATINE PHOSPHOKINASE 79 U/L (26-192); MB/CK RELATIVE INDEX 1.27 (< OR =4); TROPONIN I < 0.02 NG/ML (< 0.10)
[2021-08-14 04:53] LABS: ACETAMINOPHEN LEVEL < 2.0 UG/ML (10.0-30.0); ALBUMIN 3.4 GM/DL (3.2-5.2); ALT/SGPT 46 U/L (12-78); BILIRUBIN,DIRECT < 0.1 MG/DL (0.0-0.2); BILIRUBIN,TOTAL 0.2 MG/DL (0.2-1.0); BLOOD UREA NITROGEN 12 MG/DL (7-18); CALCIUM LEVEL 9.2 MG/DL (8.5-10.1); CARBON DIOXIDE LEVEL 23 MEQ/L (21-32); CHLORIDE LEVEL 111 MEQ/L (98-107); CREATININE FOR GFR 0.75 MG/DL (0.55-1.30); ETHYL ALCOHOL (ETHANOL) 0.003 % (0.000-0.010); GLOMERULAR FILTRATION RATE > 60.0 (>60); GLUCOSE, FASTING 81 MG/DL (70-100); POTASSIUM SERUM 4.3 MEQ/L (3.5-5.1); SALICYLATE LEVEL 2.9 MG/DL (5.0-30.0); SODIUM LEVEL 141 MEQ/L (136-145)
[2021-08-14] MEDS ORDERED: NICOTINE 21MG/24HR 1 EA TRANSDERMAL TD ONE (05:55)
[2021-08-14 06:43] LABS: AMPHETAMINES LEVEL URINE NEGATIVE (NEGATIVE); BARBITURATES URINE NEGATIVE (NEGATIVE); BENZODIAZEPINES URINE NEGATIVE (NEGATIVE); CANNABINOIDS URINE POSITIVE (NEGATIVE); COCAINE METABOLITE URINE NEGATIVE (NEGATIVE); METHADONE URINE NEGATIVE (NEGATIVE); OPIATES URINE NEGATIVE (NEGATIVE); PHENCYCLIDINE URINE NEGATIVE (NEGATIVE)
--- OUTSIDE RECORDS SUMMARY | 2021-08-14 07:27 | CCD ---
Author Author [facility] Organization [facility] Address Unknown Phone Unavailable Care Team Providers Care Strap Cutter Name Role Phone Maring, Marques PA Unavailable [...] Unavailable LynMurphy joyner MD Unavailable Unavailable LynMurphy joynre MD Unavailable Unavailable LynMurphy joyner MD Unavailable [...] Unavailable Unavailable LyndaMurphy benson MD Unavailable Unavailable LyndauMrphy benson MD Unavailable Unavailable LyndaMurphy benson MD [...] is protected by Article 27-F of the [facility] Public Health law. If you continue you may have access to information: Regarding HIV / AIDS; Provided by facilities licensed or operated by the [facility] Office of Mental Health; or Provided by the [facility] Office for People With Developmental Disabilities. If such information is present, then the following [facility] mandated warning applies: This information has [...] law may result in a fine or penitentiary sentence or both. A general authorization for the release of medical or other information is NOT sufficient authorization for further disc losure. Encounters Encounter Providers Location Date Indications Data Source(s ) Outpatient Attender: Marques ANDERSON 07/01/20 04:16:07 PM EDT - 07/01/2021 05:10:52 PM EDT [facility] ([facility] ) Outpatient Attender: SHELBY Jones/Jones/Carlton/Yamilet reyes 06/09/2021 10:30:00 AM EDT MEDENT ([facility] actice, ) Emergency Attender: TATIANA JOSEPH MDConsultant: Chirag Disla MD 04/27/2021 08:23:00 PM EDT - 04/27/2021 10:31:00 PM EDT [facility] Patient discharged. Inpatient Attender: Melvin Soni lacey: Gerson Hogan MDAdmitter: Melvin Chris MD 09/16/2020 07:48:00 PM EST - 09/17/2020 03:20:00 PM EST MOOD DISORDER NOS [facility] MOOD DISORDER NOS Patient discharged. Medications [...] 06/09/2021 12:00:00 AM EDT active M EDENT ([facility], ) 0.65 % 06/09/2021 12:00:00 AM EDT [...] 12:00:00 AM EDT ORAL active MEDENT ([facility], ) 400 mg 06/09/2021 12:00:00 AM EDT tablet 30 TAKE ONE TABLET BY MOUTH EVERY 6 HOURS NEEDED FOR PAIN TAKE ONE TABLET BY MOUTH EVERY 6 HOURS A S NEEDED FOR PAIN SOLD: 06/10/2021 [facility] Fluticasone Propionate Fluticasone Propionate 06/09/2021 12:00:00 AM E DT active MEDENT ([facility], ) Acetaminophen 325 MG / Hydrocodone [...] type / Coverage type Policy ID Covered alliance party ID Covered alliance party's relationship to bennett Policy Bennett Plan Information SELF PAY COVID19 ONLY [facility] Health Care Commercial Insurance Co. [id number] Self [id number] SELF PAY SP MEDICAID -O/P EMERGENCY ROOM [id number] [place] [id number] SP [id number] Q [facility] HEALTH CARE O [id number] S [id number] [facility] MCDHMO [id number] SP [id number] [facility] RICK [id number] SP [id number] Problems, Conditions, and Diagnoses Code Display Name Description Problem Type Effective Dates Data Source(s) Y929 Un[address] or not applicable Unspecified place or not applicable Diagnosis 04/27/2021 08:23:00 PM EDT [facility] [id number] Fall (on) (from) unspecified stairs and steps, initial encounter Fall (on) (from) unspecified stairs and steps, initial encounter Diagnosis 04/27/2021 08:23:00 PM EDT [facility] [id number] Contusion of right elbow, initial encoun ter Contusion of right elbow, initial encounter Diagnosis 04/27/2021 08:23:00 PM EDT [facility] R45.851 Suicidal ideations R45.851 - Suicidal ideations Diagno sis 09/16/2020 07:48:[address] [facility] [id number] Allergic asthma without status asthmatic us Allergic asthma without status asthmaticus Problem 06/09/2021 12:00:00 AM EDT [facility] Surgeries/Procedures Procedure Description Date Indications Data Source(s) OFFICE OUTPATIENT NEW 45 MINUTES 06/09/2021 12:00:00 A M EDT RAMON ([facility]) Results ID Date Data Source [id number] 07/01/2021 04:45:[address] [facility] Name Value Range Interpretation Code Description Data Margarette rce(s) Supporting Document(s) SARS-CoV-2 RNA Resp Ql KERRI+probe DETECTED [facility] This lab was ordered by CADEN medina and reported by CADEN Beckham. ID Date Data Source [id number] 04/27/2021 08:23:00 PM EDT [facility] 1 OrderSheet [facility] Emergency Department [address] [place] [address] Phone #: ext- [phone] 04/27/2021 20:22 Patient: JESSICA CARMEN Sex: F : 1985 Age: 36yWEIGHT:58.0 kg HEIGHT:59 inches BMI:25.8ALLERGIES: No Known Drug AllergyCHIEF COMPLAINT: elbow, RtLAB ORDERSOrder Description Priority Entered Acknowledged InitialedDIAGNOSTIC STUDY ORDERSOrder Description Priority Entered Acknowledged InitialedElbow Complete STAT 20:39 04/27/2021 Ack'd: 20:39 Odilia Lux R.N.Right Odilia Lux Cancelled: Patient Left 06:16 04/28/2021(Oxygen?(No)) R.N.; Verbal order Samia Rubin R.N. per; Taitana Joseph Reason for Study: Trauma/InjuryMEDICATION/IV/DRIP/FLUID ORDERSOrder Description Priority Entered Acknowledged InitialedGENERAL ORDERSOrder Description Priority Entered Acknowledged Initialed[Electronically signed by Oralia Graff R.N. (15:19 05/07/2021)][Electronically signed by Tatiana Joseph (08:32 05/18/2021)][Electronically locked by Oralia Graff R.N. (15:19 05/07/2021)] Name Value Range Interpretation Code Description Data Margarette rce(s) Supporting Document(s) ID Date Data Source [id number] 04/27/2021 08:23:00 PM EDT [place] [address] Medication Reconciliation Report [facility] Emergency Department [address] [place] [address] Phone #: ext- [phone] 04/27/2021 20:22 Patient: [...] Name Value Range Interpretation Code Description Data [facility](s) Supporting Document(s) ID Date Data Source [id number] 04/27/2021 08:23:00 PM EDT [place] [address] Medication Administration Record [facility] Emergency Department [address] [place] [address] Phone #: ext- [phone] 04/27/2021 20:22 Patient: JESSICA CARMEN Sex: F : 1985 Age: 36yWeight: 58.0 kgHeight/Length: 59 inBMI: 25.8ALLERGIES: No Known Drug AllergyDate/Time Medication Administered Medication Ordered Name Value Range Interpretation Code Description Data Margarette rce(s) Supporting Document(s) ID Date Data Source [id number] 04/27/2021 08:23:00 PM EDT [place] [address] Clinical Report - Nurses [facility] Emergency Department [address] [place] [address] Phone #: ext- [phone] 04/27/2021 20:22 Patient: JESSICA CARMEN Sex: F : 1985 Age: 36yTRIAGEArrived by private vehicle. Historian: patient. ( pt fell down about 5 stairs at 1300. pt has bruise noted toright elbow.).Triage time: 20:30 04/27/2021. 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 (tylenol about 1400). --20:34 [...] to the 2 Clinical Report - Nurses [facility] Emergency Department [address] [place] [address] Phone #: ext- [phone] 04/27/2021 20:22 Patient: JESSICA CARMEN Sex: F [...] rce(s) Supporting Document(s) ID Date Data Source [id number] 04/27/2021 08:23:00 PM EDT [facility] VisitID: [id number] Date: 6:16Patient left without being seen(Electronically signed by Samia Rubni R.N. - 04/28/2021 6:16) Name Value Range Interpretation Code Description Data Margarette rce(s) Supporting Document(s) ID Date Data Source [id number] 09/29/2020 08:16:00 AM [facility] History Physical Patient: JESSICA CARMEN /Age: [...] an adolescent and as an adult in [place] in [place]. She has a history of having been in custodial. She has a history of having used [...] stepmother. Jessica has spent time in both [place] and [place]. She has an extensive history [...] hydroxyzine well. She will be referred to [facility]. MENTAL STATUS EXAM AT THE [...] Followup care: She has an appointment at [facility] on 09/22/20 at 1 p.m. with [...] We wish her well. JOSEPH MCCLOUD, ZANDER [id number]/CPS #: [id number] <Electronically signed by Joseph Mccloud POWER PRESS OPERATOR> 09/30/20 1207 * <Electronically signed by Armin Ku MD> 10/01/20 1137 Joseph Mccloud POWER PRESS OPERATOR Dictated Date/Time: 09/29/20 0816 Transcribed Date/Time 09/29/20 0920 Copy to: CC: No Primary Care Phys,NOPCP ; Joseph Mccloud POWER PRESS OPERATOR Name Value Range Interpretation Code Description Data Margarette rce(s) Supporting Document(s) ID Date Data Source [id number] 09/16/2020 06:30:00 PM EST [facility] Name Value Range Interpretation Code Description Data Margarette rce(s) Supporting Document(s) SARS-CoV-2 (COVID-19) RNA [Presence] in Respiratory specimen by KERRI with probe detection [facility] This lab was ordered by [facility] and rep orted by [facility]. ID Date Data Source [id number] 09/17/2020 08:33:00 AM EST [facility] Nasopharyngeal Name Value Range Interpretation Code Description Data Margarette rce(s) Supporting Document(s) SARS Coronavirus-2, PCR Detected Undetected A [facility] Positive results are indicative of the p resence oiCICM-CtJ-0 RNA; clinical correlation with patient historyand other diagnostic information is necessary to determinepatient infection status.Per FDA guidelines, this test has been internally validatedat [facility] utilizing known standards and patientsamples. Validation review by the FDA is pending.Source: Nasopharyngeal ID Date Data Source [id number] 09/16/2020 07:31:00 PM [facility] Name: JESSICA CARMEN : [address]: Melvin Chris MD Acct: [id number] Unit: [id number] AGE: 35 Location: [facility] Re09/16/20 Dis: 09/17/20 SEX: F Status: DIS IN SPEC: [id number] LAMAR: 09/16/20-[address] [facility] [address]: Gerson Hogan MD REQ: [id number] RECD: 09/16/20-1920 STATUS: LARA RUBIO DR: Mami Primary Care Phys,NOPCP _ SOURCE: URINE SPDESC: ORDERED: Urine Culture Procedure Result Reported Site Urine Culture Final 09/19/20-825 ML Organism 1 ESCHERICHIA COLI [place] Count 75-100,000 (Many) CFU/ML 1. ESCHERICHIA COLI [...] . END OF REPORT DEPARTMENT OF PATHOLOGY, [address] [place] [address] Syl Ash M.D. Director [facility] # [id number] Name Value Range Interpretation Code Description Data Margarette rce(s) Supporting Document(s) White Blood Count 10.9 10 3/uL 3.5-10.[address] [facility] Red Blood Count 4.13 10 6 /uL 3.70-4.87 N [facility] Hemoglobin 13.8 g/dL 12.0-16.0 N [facility] er Hematocrit 40 % 35-47 N [facility] er Mean Corpuscular Volume 96 fL 80-97 N [facility] Mean Corpuscular Hemoglobin 33 pg 27-31 H [facility] Mean Corpuscular HGB Conc 35 g/dL 31-36 N [facility] Red Cell Distribution Width 13 % 10-15 N [facility] Platelet Count 301 10 3/uL 150-450 N [facility] Mean Platelet Volume 8.5 fL 7.4-10.[address] [facility] ABS Neutrophils 8.7 10 3/ul 1.5-7.7 H [facility] ABS Lymphocytes 1.5 10 3/ul 1.0-4.8 N [facility] ABS Monocytes 0.6 10 3/ul 0-0.8 [facility] ABS Eosinophils 0.1 10 3/ul 0-0.6 [facility] ABS Basophils 0.1 10 3/ul 0-0.2 [facility] ABS Nucleated RBC 0.0 10 3/ul [facility] Granulocyte % 79.7 % [facility] enter Lymphocyte % 13.4 % [facility] nter Monocyte % 5.4 % [facility] er Eosinophil % 0.9 % [facility] nter Basophil % 0.6 % [facility] er Nucleated Red Blood Cells % 0.0 [facility] ID Date Data Source [id number] 09/16/2020 07:56:00 PM [facility] Name: JESSICA CARMEN : [address]: Melvin Chris MD Acct: [id number] Unit: [id number] AGE: 35 Location: [place] [address] Re09/16/20 Dis: 09/17/20 SEX: F Status: DIS IN SPEC: [id number] LAMAR: 09/16/[address] [facility] [address]: Gerson Hogan MD REQ: [id number] RECD: 09/16/20 STATUS: LARA RUBIO DR: Mami Primary Care Phys,NOP _ SOURCE: URINE SPDESC: ORDERED: Urine Culture Procedure Result Reported Site Urine Culture Final 09/19/20-825 ML Organism 1 ESCHERICHIA COLI [place] Count 75-100,000 (Many) CFU/ML 1. ESCHERICHIA COLI [...] . END OF REPORT DEPARTMENT OF PATHOLOGY, [address] [place] [address] Syl Ash M.D. Director [facility] # [id number] Name Value Range Interpretation Code Description Data Margarette rce(s) Supporting Document(s) Sodium 138 mmol/L 135-[address] [facility] Potassium 3.8 mmol/L 3.5-5.0 [facility] Chloride 106 mmol/L 101-111 [facility] CO2 Carbon Dioxide 24 mmol/L 22-32 [facility] Anion Gap 8 mmol/L 2-11 N [facility] Glucose 107 mg/dL 70-100 H [facility] Blood Urea Nitrogen 16 mg/dL 6-24 [facility] Creatinine 0.85 mg/dL 0.51-0.[address] [facility] [address] BUN/Creatinine Ratio 18.8 8-20 [facility] Calcium 10.2 mg/dL 8.6-10.3 [facility] er Total Protein 6.8 g/dL 6.4-8.9 [facility] enter Albumin 4.4 g/dL 3.2-5.2 N [facility] Globulin 2.4 g/dL 2-4 N [facility] Albumin/Globulin Ratio 1.8 1-3 [facility] Total Bilirubin 0.30 mg/dL 0.2-1.0 [facility] Alkaline Phosphatase 62 U/L 34-[address] [facility] ALT 8 U/L 7-52 N [facility] AST 14 U/L 13-39 N [facility] EGFR Non- 77.0 >60 [facility] EGFR 93.2 >60 [facility] Because ethnic data is not always [...] <15 (or dialysis) ID Date Data Source [id number] 09/16/2020 07:56:00 PM [facility] Name: JESSICA CARMEN : [address]: Melvin Chris MD Acct: [id number] Unit: [id number] AGE: 35 Location: [facility] 207- Re09/16/20 Dis: 09/17/20 SEX: F Status: DIS IN SPEC: [id number] LAMAR: 09/16/20-[address] [facility] [address]: Gerson Hogan MD REQ: [id number] RECD: 09/16/20 STATUS: LARA RUBIO DR: Mami Primary Care Phys,NOPCP _ SOURCE: URINE SPDESC: ORDERED: Urine Culture Procedure Result Reported Site Urine Culture Final 09/19/20-0826 ML Organism 1 ESCHERICHIA COLI [place] Count 75-100,000 (Many) CFU/ML 1. ESCHERICHIA COLI [...] . END OF REPORT DEPARTMENT OF PATHOLOGY, [address] [place] [address] Syl Ash M.D. Director [facility] # [id number] Name Value Range Interpretation Code Description Data Margarette rce(s) Supporting Document(s) Acetaminophen < 15 mcg/mL [facility] Therapeutic concentration: <50 ug/mLToxi c concentration: >120 ug/mL ID Date Data Source [id number] 09/16/2020 07:56:00 PM [facility] Name: JESSICA CARMEN : [address]: Melvin Chris MD Acct: [id number] Unit: [id number] AGE: 35 Location: [facility] Re09/16/20 Dis: 09/17/20 SEX: F Status: DIS IN SPEC: [id number] LAMAR: 09/16/20-[address] [facility] [address]: Gerson Hogan MD REQ: [id number] RECD: 09/16/20 STATUS: LARA RUBIO DR: Mami Primary Care Phys,NOPCP _ SOURCE: URINE SPDESC: ORDERED: Urine Culture Procedure Result Reported Site Urine Culture Final 09/19/20-825 ML Organism 1 ESCHERICHIA COLI [place] Count 75-100,000 (Many) CFU/ML 1. ESCHERICHIA COLI [...] . END OF REPORT DEPARTMENT OF PATHOLOGY, [address] [place] [address] Syl Ash M.D. Director [facility] # [id number] Name Value Range Interpretation Code Description Data Margarette rce(s) Supporting Document(s) Alcohol, S < 10 mg/dL <[address] [facility] ter ID Date Data Source [id number] 09/16/2020 07:56:00 PM [facility] Name: JESSICA CARMEN : [address]: Melvin Chris MD Acct: [id number] Unit: [id number] AGE: 35 Location: [facility] - Re09/16/20 Dis: 09/17/20 SEX: F Status: DIS IN SPEC: [id number] LAMAR: 09/16/20-[address] [facility] [address]: Gerson Hogan MD REQ: [id number] RECD: 09/16/20 STATUS: LARA RUBIO DR: Mami Primary Care Phys,NOP _ SOURCE: URINE SPDESC: ORDERED: Urine Culture Procedure Result Reported Site Urine Culture Final 09/19/20-0826 ML Organism 1 ESCHERICHIA COLI [place] Count 75-100,000 (Many) CFU/ML 1. ESCHERICHIA COLI [...] . END OF REPORT DEPARTMENT OF PATHOLOGY, [address] [place] [address] Syl Ash M.D. Director [facility] # [id number] Name Value Range Interpretation Code Description Data Margarette rce(s) Supporting Document(s) Salicylate < 2.50 mg/dL <30 [facility] ID Date Data Source [id number] 09/16/2020 07:56:00 PM EST [facility] Name: JESSICA CARMEN : [address]: Melvin Chris MD Acct: [id number] Unit: [id number] AGE: 35 Location: [facility] Re09/16/20 Dis: 09/17/20 SEX: F Status: DIS IN SPEC: [id number] LAMAR: 09/16/20-[address] [facility] [address]: Gerson Hogan MD REQ: [id number] RECD: 09/16/20 STATUS: LARA RUBIO DR: Mami Primary Care Phys,NOPCP _ SOURCE: URINE SPDESC: ORDERED: Urine Culture Procedure Result Reported Site Urine Culture Final 09/19/20-08 ML Organism 1 ESCHERICHIA COLI [place] Count 75-100,000 (Many) CFU/ML 1. ESCHERICHIA COLI [...] . END OF REPORT DEPARTMENT OF PATHOLOGY, [address] [place] [address] Syl Ash M.D. Director [facility] # [id number] Name Value Range Interpretation Code Description Data Margarette rce(s) Supporting Document(s) TSH Ultra Thyroid Stim Horm 0.41 mcIU/mL 0.34-5.60 [facility] ID Date Data Source [id number] 09/16/2020 07:37:00 PM [facility] Name: JESSICA CARMEN : [address]: Melvin Chris MD Acct: [id number] Unit: [id number] AGE: 35 Location: [facility] Re09/16/20 Dis: 09/17/20 SEX: F Status: DIS IN SPEC: [id number] LAMAR: 09/16/20-[address] [facility] [address]: eGrson Hogan MD REQ: [id number] RECD: 09/16/20 STATUS: LARA RUBIO DR: Mami Primary Care Phys,[facility] _ SOURCE: URINE SPDESC: ORDERED: Urine Culture Procedure Result Reported Site Urine Culture Final 09/19/20-825 ML Organism 1 ESCHERICHIA COLI [place] Count 75-100,000 (Many) CFU/ML 1. ESCHERICHIA COLI [...] . END OF REPORT DEPARTMENT OF PATHOLOGY, [address] [place] [address] Syl Ash M.D. Director [facility] # [id number] Name Value Range Interpretation Code Description Data Margarette rce(s) Supporting Document(s) Urine Color [facility] Urine Appearance Cloudy [facility] Urine Specific [place] 1.030 1.010-1.030 N [facility] Urine pH 5.0 5-9 N [facility] Urine Urobilinogen Positive Negative A [facility] Urine Ketones Trace Negative [facility] enter Urine Protein 2+(100 mg/dL) Negative A [facility] Urine Leukocytes Trace Negative A [facility] Urine Blood Negative Negative [facility] ter * * Negative A [facility] *Ascorbic acid is present which may inte rfere with detectionof blood. Urine Nitrite Negative Negative [facility] enter Urine Bilirubin Negative Negative [facility] Urine Glucose Negative Negative [facility] enter Urine White Blood Cell 2+(11-20/hpf) Absent A [facility] Urine Red Blood Cell 3+(>10/hpf) Absent A [facility] Urine Bacteria Absent Absent [facility] Urine Squamous Epithelial Cell Present Absent A [facility] Urine Calcium Oxalate Cryst Present Absent A [facility] ID Date Data Source [id number] 09/16/2020 07:43:00 PM EST [facility] Name: JESSICA CARMEN : [address]: Melvin Chris MD Acct: [id number] Unit: [id number] AGE: 35 Location: [facility] Re09/16/20 Dis: 09/17/20 SEX: F Status: DIS IN SPEC: [id number] LAMAR: 09/16/20-[address]: Gerson Hogan MD REQ: [id number] RECD: 09/16/20 STATUS: LARA RUBIO DR: Mami Primary Care Phys,NOP _ SOURCE: URINE SPDESC: ORDERED: Urine Culture Procedure Result Reported Site Urine Culture Final 09/19/20-0826 ML Organism 1 ESCHERICHIA COLI [place] Count 75-100,000 (Many) CFU/ML 1. ESCHERICHIA COLI [...] . END OF REPORT DEPARTMENT OF PATHOLOGY, [address] [place] [address] Syl Ash M.D. Director [facility] # [id number] Name Value Range Interpretation Code Description Data Margarette rce(s) Supporting Document(s) Urine Amphetamine Screen None Detected None Detect [facility] Urine Barbiturates Screen None Detected None Detect [facility] Urine Benzodiazepine Screen None Detected None Detect [facility] Urine Cannabinoids Screen Presumptive Positive None Detect A [facility] Presumptive positive results are unconfi rmed. Urine Cocaine Screen None Detected None Detect [facility] Urine Opiates Screen None Detected None Detect [facility] Urine Phencyclidine Screen None Detected None Detect [facility] The urine specimen was tested [facility] katty cutoffs:Drug class test level(ng/mL)Amphetamines 500Barbiturates 200Benzodiazepine metabolites 200Cocaine metabolites 150Cannabinoids 50Opiates 300Pcp 25Specimen was received without chain of custody. Resultsshould be used for medical purposes only. ID Date Data Source [id number] 09/19/2020 08:26:00 AM EST [facility] Name: NELLAJESSICA : [address]: Melvin Chris MD Acct: [id number] Unit: [id number] AGE: 35 Location: [facility] Re09/16/20 Dis: 09/17/20 SEX: F Status: DIS IN SPEC: [id number] LAMAR: 09/16/20-[address] [facility] [address]: Gerson Hogan MD REQ: [id number] RECD: 09/16/20 STATUS: LARA RUBIO DR: Mami Primary Care Phys,NOPCP _ SOURCE: URINE SPDESC: ORDERED: Urine Culture Procedure Result Reported Site Urine Culture Final 09/19/20-08 ML Organism 1 ESCHERICHIA COLI [place] Count 75-100,000 (Many) CFU/ML 1. ESCHERICHIA COLI [...] . END OF REPORT DEPARTMENT OF PATHOLOGY, [address] [place] [address] Syl Ash M.D. Director [facility] # [id number] Name Value Range Interpretation Code Description Data Margarette rce(s) Supporting Document(s) ID Date Data Source [id number] 09/16/2020 04:40:00 PM [facility] ED Provider Documentation Patient: JESSICA CARMEN [address] /Age: 04 1985 35 Medical Record #: [id number] Service Date: 09/16/20 Location: EMERGENCY DE PARTMENT Observation Date/Time: Psychiatric Complaint - HPI Summary HPI Summary: This patient is a 35 y/o female presenting to [facility] via police for suicidal ideation. Patient [...] is a 35 y/o female presenting to [facility] via police for suicidal ideation. Patient [...] Dr. Chris will admit the patient to [facility] on a voluntary status with dx mood disorder NOS. - Differential Dx/Clinical Impression Provider Diagnosis: Mood disorder - Critical Care Time Critical Care Statement: Critical care time is provided exclusive of any time spent performing procedures. Discharge ED - Sign-Out/Discharge Documenting (check all that apply): Patient Departure - Admit to [facility] - Discharge Plan Condition: Stable Disposition: PSYCHIATRIC FACILITY-[facility] Referrals: [facility] PHYSICIAN REFERRAL [Outside] No Primary Care Phys,NOPCP [Primary Care Provider] - - Billing Disposition and Condition Condition: STABLE Disposition: Psychiatric Facility [facility] - Attestation Statements Document Initiated by Scribe: Yes Documenting Scribe: Massiel Chong Provider For Whom Scribe is Documenting (Include Credential): Gerson Hogan MD Scribe Attestation: Massiel Almendarez scribed for Gerson Hogan MD on 09/16/20 at 1951. Scribe Documentation Reviewed: Yes Provider Attestation: The documentation as recorded by the scribeMassiel accurately reflects the service I personally performed and the decisions made by mt, Gerson Hogan MD Status of Scribe Document: Viewed <Electronically signed by Gerson Hogan MD> 09/16/201951 Entered by: Massiel DUNNE Entered Date/Time: 09/16/20 1640 Copy to: No Primary Care Phys,NOPCP Name Value Range Interpretation Code Description Data Margarette rce(s) Supporting Document(s) Procedure Social History No Information Vital Signs ID Date Data Source UNK Name Value Range Interpretation Code Description Data Source(s) [place] body weight 105 [lb_av] 105 [lb_av] MEDEN T ([facility], ) Body weight 59.875 kg 59.875 kg MEDENT ([facility]) Body height 61 [in_i] 61 [in_i] MEDENT ([facility]) 5'1" Body weight 132.00 [lb_av] 132.00 [lb_av] MEDEN T ([facility]) Body mass index (BMI) [Ratio] 24.9 kg/m2 24.9 k g/m2 [facility] ([facility], ) Body surface area Derived from formula 1.58 m2 1.58 m2 [facility] ([facility], ) ID Date Data Source [id number] 02/19/2021 03:55:00 PM EDT [facility] Name Value Range Interpretation Code Description Data Source(s) HEIGHT 149.86 cm 149.86 cm [facility] WEIGHT RECORDED 51.495907 kg 51.955839 kg [facility]
--- NOTE | 2021-08-14 08:13 | ECGEPIP ---
[facility] - ED Test Date: 2021-08-14 Pat Name: ASA CARMEN Department: Room: - Gender: Female [employer] Worker: GALA : 1985 Requested By: BENITO Castillo Order Number: [id number] Reading MD: Margaret Mendosa Measurements Intervals [place] Rate: 71 P: 10 [place]: 152 QRS: 6 QRSD: 88 T: 10 QT: 402 QTc: 436 Interpretive Statements Normal sinus rhythm NSTTW abnormalities No prior Electronically Signed on 08-14-2021 8:12:51 EST by Margaret Mendosa
[2021-08-14 09:42] LABS: RSV AMPLIFICATION POSITIVE (NEGATIVE)
[2021-08-14] MEDS ORDERED: traZODone 50 MG TAB PO PRN (09:55)
[2021-08-14] MEDS ORDERED: MOM 30ML SUSPENSION UDC PO PRN (09:55)
[2021-08-14] MEDS ORDERED: MAALOX 30 ML SUSP *UDC PO PRN (09:55)
[2021-08-14] MEDS ORDERED: ACETAMINOPHEN TAB 650MG DOSE (2X325MG) PO PRN (09:55)
[2021-08-14] MEDS ORDERED: COMMENTS (10:20)
[2021-08-14] MEDS ORDERED: HOME MED LIST COMPLETE! XX SCH (10:25)
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
[2021-08-14 11:39] VITALS: BP 126/69
[2021-08-14] MEDS: OLANZapine ORAL DISINTEGRATING TAB 5MG PO PRN ×2 (13:52→22:18)
[2021-08-14] MEDS: DIVALPROEX 250MG *ER* TAB PO SCH (22:13)
[2021-08-15 06:42] VITALS: BP 100/63
--- NOTE | 2021-08-15 11:05 | CR.PDOC ---
General Date of Consultation: Aug 15, 2021 Attending Physician: Roxanna Linder MD Consultation MEDICAL CONSULT H&P HISTORY OF PRESENT ILLNESS: Patient is a 36-year-old female with past medical history of bipolar disorder, separation disorder, anxiety, ADHD, borderline personality disorder, asthma, h istory of Covid 19 infection 06/2021, transverse fracture of the lower back who presented to [facility] with suicidal ideation. Patient states she's had increased anxiety because her fianc is currently incarcerated. She was aggressive and agitated in the emergency room. She displayed increased anxiety complained of depressed mood, hopelessness, helplessness, had poor impulse, admitted to poor sleep. The patient also made comments referring to jumping off a bridge if they were to let her go. The patient was admitted to inpatient mental health for bipolar disorder, suicidal ideations. On exam the patient currently denies auditory or visual hallucinations, depressed mood, suicidal or homicidal ideations. She states to feel better on valproic acid versus lithium. She denies chest pain, fevers, chills. She currently has RSV but denies any increased shortness of breath. The patient had no other acute complaints. REVIEW OF SYSTEMS: CONSTITUTIONAL: Denies lack of energy, unexplained weight gain or weight loss, loss of appetite, fever, night sweats EYES: Denies eye drainage, eye pain, visual changes, dry/irritated eye EARS, NOSE, MOUTH, THROAT: Denies difficulty hearing, ringing in ears, mouth sores, loose teeth, sore throat, facial numbness or pain NECK: Denies swollen glands CARDIOVASCULAR: Denies irregular heartbeat, racing heart, chest pains, swelling of feet or legs, pain in legs with walking RESPIRATORY: Denies shortness of breath, night sweats, wheezing, sputum production, oxygen at home, coughing up blood, cough lasting > 1 month GASTROINTESTINAL: Denies abdominal pain, constipation, bloody stool, diarrhea, heartburn, nausea, vomiting GENITOURINARY: Denies painful urination, bloody urine, frequent urination, urgency, leaking urine, impotence MUSCULOSKELETAL: Denies muscle pain, leg swelling INTEGUMENTARY: Denies rash, itching, new skin lesion, change in existing skin lesion, hair loss or increase, breast changes. NEUROLOGICAL: Denies headaches, dizziness, difficulty walking, numbness or tingling PSYCHIATRIC: Denies hallucinations PAST MEDICAL HISTORY: bipolar disorder, separation disorder, anxiety, ADHD, borderline personality disorder, asthma, history of Covid 19 infection 06/2021, transverse fracture of the lower back PAST SURGICAL HISTORY: Adenoidectomy Laparoscopic left knee surgery FAMILY HISTORY: Motherkidney cancer. Alive SOCIAL HISTORY: Smokes cigarettes, one pack per day and has been doing so for 15 years. Denies alcohol use. Smokes marijuana occasionally. Lives with her mother, currently unemployed. She does not have a primary care provider. She is scheduled to follow-up with [facility] in August. ALLERGIES: Please see below. HOME MEDICATIONS: Please see below. PHYSICAL EXAMINATION: VS: Stable, RA. CONSTITUTIONAL: No acute distress, resting comfortably, AAO x 3 EYES: PERRLA, EOM intact HENT, MOUTH: Normocephalic, atraumatic, moist mucous membranes NECK: SUPPLE, no JVD, no lymphadenopathy, no carotid bruit CV: Regular rate and rhythm, S1S2 normal, no murmurs/rubs/gallops RESPIRATORY: Clear to auscultation bilaterally, no rales/rhonchi/wheezes GI: BS positive in 4 quadrants, soft, nontender, nondistended, no rebound or guarding, no organomegaly : Deferred MUSCULOSKELETAL: Normal ROM. No cyanosis, clubbing, swelling, joint deformity, extremity edema INTEGUMENTARY: Intact, no rashes, no lesions, no erythema NEUROLOGIC: Cranial Nerves II-XII are intact, no focal deficits PSYCHIATRIC: Mood and affect are normal LABORATORY DATA: Please see below IMAGING: None ASSESSMENT: 36-year-old female with past medical history above admitted to inpatient mental health unit for bipolar disorder, suicidal ideations. PLAN: Bipolar disorder, suicidal ideations -Plan per psychiatry RSV -Currently doing well on RA -Supportive care if develops symptoms -Encourage hydration Asthma -Stable on RA Hx of transverse fracture of lower spine -Recommend f/u with PCP DISPOSITION: Thank you kindly for this consult. At this time will sign off but if we are needed again, please do not hesitate to call. Vital Signs/I&O Vital Signs Date Time Temp Pulse Resp B/P (MAP) Pulse Ox O2 Delivery O2 Flow Rate FiO2 08/15/21 08:18 Room Air 08/15/21 06:42 97.9 78 18 100/63 (75) 97 Allergies Coded Allergies: bee venom protein (honey bee) (Verified Allergy, Severe, 02/16/21) shellfish derived (Verified Allergy, Severe, ANAPHYLAXIS, 02/16/21) Uncoded Allergies: Caress Soap (Allergy, Intermediate, 08/14/21) Rash & Itchiness Ivory soap (Allergy, Intermediate, 08/14/21) Rash & Itchiness Some soaps (Allergy, Intermediate, 08/14/21) Rash & Itchiness Home Medications Scheduled PRN Albuterol Sulfate (Proair Hfa) 8.5 Gm Hfa.aer.ad, 2 PUFF INH Q6H PRN for SOB/WHEEZING, (Reported) Miscellaneous Medications [Comments] , (Reported) PT TOOK MOTHER'S KLONOPIN TAB TO TRY AND CALM DOWN ON 08/13/21 Roxanna Linder MD Aug 15, 2021 11:05
--- NOTE | 2021-08-15 12:49 | MHHPE ---
[facility] HISTORY AND PHYSICAL DATE OF ADMISSION: 08/14/2021 VITAL SIGNS: Blood pressure 126/69, pulse 88, temperature 98.3 This is a video assessment. She is in the inpatient psychiatry unit, seen in the presence of staff. I am at home. I later went to the inpatient unit to see her after obtaining history via video, but she was quite agitated when I was there, was arguing with staff, other patients, and I felt it best not to see her [id number] at that time. Will follow up on that. The history was essentially obtained on video, when she was quite calm. CHIEF COMPLAINT: Feels depressed and suicidal. SUBJECTIVE: She is 36 years old, lives with her mother locally in the area. Says has been feeling depressed and that her moods seem to fluctuate. Says treated for bipolar disorder. Has been on lithium in the past for several years, but at some point stopped, was unable to reestablish care as she did not have insurance, but says had gone to outpatient walk-in at [facility] and was seen there and told that she would see a therapist in the middle of August and then a clinician prescriber later than that. She felt it was too far out, felt increasingly distressed and that she was suicidal and then later suggests that she did not, in fact, feel suicidal, but had said that she was in order to gain admission so she could be treated rather than waiting for this length of time to be seen as an outpatient. Says has been treated for bipolar disorder and anxiety in the past. Suggests at one time had taken Xanax, which she found helpful and the other day had taken one of her mother's Klonopin. Apparently has also been arguing with her fiance, who is in [facility]. Has felt like dying, but denies that she has been suicidal. Suggests has had periods where she has felt elated in mood, somewhat irritable and more energetic than usual in the past. No history consistent with psychosis. PAST PSYCHIATRIC HISTORY: As indicated above. Says has bipolar disorder, has been on lithium in the past, stopped it a couple of years or so ago, is in the process of resuming care. Says could not wait for the initial outpatient appointments and decided to come in. Has been diagnosed with attention deficit hyperactivity disorder in the past as well and also says multiple personality disorder. When asked to elaborate on that, says there are times where she would say things, do things and does not remember them later. She did not go into details. When in the emergency room (ER), was angry, upset towards that worker there, indicating she had posttraumatic stress disorder, had refused blood work and initial exam by the doctor. The ER record also suggest collateral information from patient's partner, Laura Byers. Patient is quite angry, upset and suggests did not want to be examined. She also indicated she was going to jump off a bridge when in the ER. She had cut herself a few days ago and suggested she attempted to kill herself. Vague on this later, however. Was last hospitalized in [place] about a year or so ago. Has a history of hospitalizations as a child. Smokes marijuana regularly. Has a diagnosis of bipolar type 2 disorder, borderline personality disorder, posttraumatic stress disorder. FAMILY PSYCHIATRIC HISTORY: Unclear, but she suggests there are people in the family who have had difficulties. SOCIAL HISTORY: Unclear. She used to live in the area, left, returned. MENTAL STATUS EXAMINATION: A bit unkempt but cooperative. There is no agitation. No psychomotor retardation. Coherent. Affect reactive. Displays mild irritability at times. She denies any suicidal thoughts or intents. No homicidal ideas or intents. No evidence of any psychosis. Cognition grossly intact. Judgment and insight are compromised. ASSESSMENT: 1. Bipolar disorder, current episode manic versus mixed, rule out psychotic features. 2. Posttraumatic stress disorder by history. 3. Lack of recent treatment. 4. Enduring circumstances. 5. Questionable supports. PLAN: She is admitted to the inpatient psychiatry unit, placed under relevant precautions. We will look at obtaining collateral information. She will receive a medicine consultation. She will be encouraged to participate in activities in the unit. She wishes to avoid lithium, which I think is reasonable, and after a discussion of the risks, benefits, drawbacks and alternatives, which I think she understands, she is started on Depakote ER at 250 mg at night to be titrated accordingly. She will be discharged with followup once she is stable. I would anticipate a 5-7 day stay. It should be noted that when I had gone to see her in the hospital she was quite agitated with staff, other patients, and it was decided not to see her [id number] at that time. We will postpone that. The assessment took 40 minutes.
[2021-08-15 18:46] VITALS: BP 122/73
[2021-08-15] MEDS: DIVALPROEX 250MG *ER* TAB PO SCH (20:23)
[2021-08-16 06:30] VITALS: BP 114/60
[2021-08-16] MEDS ORDERED: DEPA250T2 PO (09:10)
[2021-08-16] MEDS ORDERED: TRAZ-252 PO (09:10)
--- NOTE | 2021-08-16 11:04 | MHDSPDOC ---
[facility] Discharge Summary Discharge Summary DATE OF ADMISSION: Aug 14, 2021 at 09:53 DATE OF DISCHARGE: August 16, 2021 Discharge diagnoses: PTSD per history Borderline personality disorder Cannabis use disorder Reason for admission: Patient reported lack of sleep, increased anxiety and depression in context of not having an appoint with provider scheduled until mid August, states that she told them in the ED she was suicidal so that she get admitted and get started back on medication because she been having mood swings, increased irritability, in context of arguments with carlo who is in long-term, reports good support from her girlfriend Laura Byers. Vital signs: See below Consultants involved: See medical H&P by hospitalist Treatment and progress on the unit: Patient was admitted to the [facility] on a 9.39 legal status and was afforded the following treatment modalities: 1. Individual therapy 2. Group therapy 3. Medication management 4. Milieu therapy 5. Safe environment Hospital course: Patient was admitted to the [facility] on a 9.39 legal status. Was medically cleared prior to coming up to the [facility]. Was started on Depakote 250 mg extended release and as needed trazodone for sleep with good effect, patient found medications beneficial and tolerated them well. Patient reports getting full nights of sleep, feeling mood is more even, collateral was obtained from girlfriend Laura Byers [phone]: Per collateral: states that patient has had anxiety and depressed symptoms, no manic behavior since she was diagnosed with bipolar in [employer], she came in due to medication issues and wanting to get back on meds, symptoms include mostly moment to moment shifts in mood and personality changes, no self injury, no suicidal ideation just mood swings, no previous suicide attempts she is aware of, states she just came in to get back on medications because everything is booked out due to the holidays and no weapons at home, feels ready to have her home and that she will be safe. Patient denies mood anxiety and intrusive thoughts which improved with treatment. Patient attended groups daily during stay. Patient symptoms improved with treatment. On day of discharge patient denied depression, anxiety, insomnia, suicidal or homicidal ideations intent or plan, hallucinations, delusions. Patient was discharged home with follow-up. Patient felt safe for discharge. Was offered continued stay involuntary admission but refused. Discharge assessment: On today's interview patient is alert and oriented, dressed appropriately. Hygiene and grooming is well-kept. Smiles on approach and is pleasant and engaged on interview. Denies depression and anxiety. Denies suicidal homicidal ideation, intent or planning. Denies and is not o bserved with cy or psychotic symptoms of delusions, hallucinations, bizarre thinking, obsessions, paranoia, ruminations, illogical thoughts, flight of ideas or having poor insight or judgment. Patient has normal mentation, declines further hospitalization of voluntary status and meets criteria for discharge today, patient encouraged to return the hospital if symptoms worsen or change and encouraged to call unit if they feel they need provider's questions to be answered or help with medications or care. Recommend follow-up for medications include Depakote, possibly Depakote level, evaluation of LFTs. Mental status: Patient is a 36-year old female, who is in no acute distress, good eye contact, good hygiene, casual clothing, Speech is normal rate rhythm and volume, spontaneous Language skills are intact. Thought processes including: Linear logical, goal directed. Thought content: Denies suicidal ideation, intent or plan. Denies homicidal ideation, intent or plan. Abstract reasoning, and computation: Normal Description of associations: Normal. Description of abnormal or psychotic thoughts: Denies, not observed Judgment: Good Insight: Good. Orientation to x4 Recent and remote memory: Intact Attention span and concentration: Normal. Language: Citizen Of [place]. Fund of knowledge: Average based on interview. Mood: "good" Affect: Euthymic, full, bubbly, smiles, appropriate Medications on discharge: see medication reconciliation: CSSRS on discharge: Wish to be : No nonspecific active suicidal thoughts: No lifetime attempts: 0 interrupted attempts: 0 aborted attempts: 0 preparatory acts or behavior: None Taking into consideration safety state, status, safety plan, active factors, modifiable, non-modifiable risk factors patient is at low risk on discharge for suicide according to [place] suicide evaluation. PLAN/FOLLOWUP ARRANGEMENTS: See social work notes for details. The amount of time spent in the coordination of care for this patient was approximately 40 minutes. ETOH/Disorder Med Rx ETOH/DRUG DISORDER RX: Offrd @ d/c & pt refused Vital Signs/I&Os Vital Signs Date Time Temp Pulse Resp B/P (MAP) Pulse Ox O2 Delivery O2 Flow Rate FiO2 08/16/21 06:30 98.8 82 16 114/60 (78) 96 Room Air Medications Scheduled Divalproex Sodium (Depakote ER) 250 Mg Tab.er.24h, 250 MG PO QHS for mood stabilization, #7 Scheduled PRN Albuterol Sulfate (Proair Hfa) 8.5 Gm Hfa.aer.ad, 2 PUFF INH Q6H PRN for SOB/WHEEZING, (Reported) Trazodone HCl (Trazodone HCl) 50 Mg Tablet, 50 MG PO QHSP PRN for INSOMNIA, #7 Miscellaneous Medications [Comments] , (Reported) PT TOOK MOTHER'S KLONOPIN TAB TO TRY AND CALM DOWN ON 08/13/21 Allergies Coded Allergies: bee venom protein (honey bee) (Verified Allergy, Severe, 02/16/21) shellfish derived (Verified Allergy, Severe, ANAPHYLAXIS, 02/16/21) Uncoded Allergies: Caress Soap (Allergy, Intermediate, 08/14/21) Rash & Itchiness Ivory soap (Allergy, Intermediate, 08/14/21) Rash & Itchiness Some soaps (Allergy, Intermediate, 08/14/21) Rash & Itchiness TYRESE BAILEY MD Aug 16, 2021 11:04
--- NOTE | 2021-08-17 10:49 | MHIPN ---
[facility] PRO[facility] NOTE DATE: 08/15/2021 VITAL SIGNS: These are as listed, blood pressure 100/63, pulse 78, temperature 97.9. This is a video assessment, we are doing this because of the pandemic, she is in the inpatient unit, I am at home. CHIEF COMPLAINT: Says feels better. SUBJECTIVE: Seen for followup, indicates has been feeling better, more rested, says had a good night's sleep, but that she also feels tired. She says her mind is calmer overall, moods are good, denies feeling irritable. Was irritated last night, says this was in response to a phone conversation with a friend, who suggested that it is the patient's own fault that she is in the hospital, the patient was upset with that, says they spoke again today and that went better, and she is pleased with that. Denies any periods of irritability today. MENTAL STATUS EXAMINATION: She is neat, she is cooperative, no agitation, no psychomotor retardation, she has a fairly broad affect, it is less labile. She denies any thoughts of harming herself at present, no homicidal ideas or intents, currently no evidence of any psychosis. Cognition grossly intact. Judgment and insight remain compromised, though possibly somewhat improved. ASSESSMENT: Bipolar disorder, current episode manic versus mixed, without psychotic features. Rule out posttraumatic stress disorder by history. Somewhat calmer today, less irritable, less labile. May well be minimizing her difficulties. PLAN: She has been started on Depakote at 250 mg at night, we spoke of increasing it, to help establish mood stability, but after a discussion, she would rather it stay at the present dose, as she feels quite tired, unsure if it is because of the Depakote, or last night's sleep. In view of this, we will continue with the current dose. She is encouraged to participate in activities in the unit. We will look at obtaining collateral information. She will be seeing the assigned clinician tomorrow, and further recommendations will be made. She hopes to be out of the hospital soon.
== END 2021-08-16 12:33 | disposition home or self-care (01) | DRG 752 ==
LOC: M ED 23:05 → M ED INP 08-14 09:53 → M PSY 08-14 11:44
PROVIDERS: ADMIT Student in an Organized Health Care Education/Training Program; ATTEND Student in an Organized Health Care Education/Training Program
DX: F60.3 Borderline personality disorder (principal); F17.210 Nicotine dependence, cigarettes, uncomplicated; F12.90 Cannabis use, unspecified, uncomplicated; Z91.030 Bee allergy status; Z91.013 Allergy to seafood

== ENCOUNTER 2021-10-18 21:33 | Emergency (ER) | payer OTHER, MEDICAID ==
[~2021-10-18] VITALS: Ht 149.9 cm; Wt 72.7 kg
[2021-10-18 21:33] VITALS: BP 143/85
[~2021-10-18 21:33] MED LIST changes: +COMMENTS; +DEPA250T2 PO; +KLON0.5T PO; +TRAZ-252 PO
== END 2021-10-18 22:35 | disposition left against medical advice (07) ==
LOC: M ED 21:33
DX: Z53.21 Procedure and treatment not carried out due to patient leaving prior to being seen by health care provider (principal)